=== PATIENT | female | born 1995 | race Caucasian/White ===

== ENCOUNTER → 2018-07-22 | Outpatient (CLI) | payer BC ==
--- NOTE | 2018-07-22 11:03 | KCIC ---
Renal ultrasound dated 07/22/2018. No comparison available. Clinical data indication: Urinary tract infection. FINDINGS: Right kidney measures 8.7 cm in length. Left kidney measures 12.5 cm in length. No hydronephrosis. No apparent renal mass or shadowing calculus. Urinary bladder is not well distended. Ureteral jets are not visualized. Aorta and IVC are not well evaluated due to overlying bowel gas. IMPRESSION: 1. No acute sonographic abnormality. No evidence of hydronephrosis. 2. Atrophic right kidney. Electronically signed by: Spencer Watts MD (07/22/2018 10:59 AM) [id number]
== END | disposition home or self-care (01) ==
LOC: KCIC US 10:23
PROVIDERS: ATTEND Family Medicine
DX: N26.1 Atrophy of kidney (terminal) (principal)
CPT/HCPCS: 76770